=== PATIENT | male | born 1935 | race African-American/Black ===

== ENCOUNTER 2018-11-18 06:38 | Day surgery (SDC) | payer MEDICARE, MEDICAID ==
--- NOTE | 2018-11-15 10:57 | Opthalmology H&P ---
Ophthalmology H&P H&P Chief Complaint: decreased vision in left eye HPI Vision Affects Ability to: read, manage personal affairs HPI Narrative blurry vision Exam Visual Acuity: OD 20/80 OS 20/100 Tension: OD 17 OS 14 Eye Exam: normal OU: external exam, palpebral fissure-width, marginal reflex distance, levator function, corneas, anterior chambers, lens, fundus exam Assessment/Plan Treatment Plan: cataract extraction w/ lens implant Goals of Treatment: improvement of vision, enhance quality of life Attestation Attestation The risks and benefits of the surgery as well as alternative procedures were explained to the patient in detail. Manas Latif MD November 15, 2018 10:57
--- NOTE | 2018-11-15 10:59 | Pre-Procedure Note/Attestation ---
Pre-Procedure Note/Attestation Complete Prior to Procedure Planned Procedure: left Procedure Narrative: Cataract extraction with intraocular lens implant left eye Indications for Procedure Pre-Operative Diagnosis: nuclear sclerotic cataracts left eye Attestation I attest that I discussed the nature of the procedure; its benefits; risks and complications; and alternatives (and the risks and benefits of such alternatives ), prior to the procedure, with the patient (or the patient's legal sales representative facility services). I attest that, if there was a reasonable possibility of needing a blood transfusion, the patient (or the patient's legal sales representative facility services) was given the [facility] standardized written summary, pursuant to the Keyur Kayla Blood Safety Act ([place] Health and Safety Code # 1645, as amended). I attest that I re-evaluated the patient just prior to the surgery and that there has been no change in the patient's H&P, except as documented below: Manas Latif MD November 15, 2018 10:59
[~2018-11-18] VITALS: Ht 172.7 cm; Wt 117.9 kg
[2018-11-18] VITALS (9 sets, daily range): BP systolic 122–166; BP diastolic 63–73
[2018-11-18] MEDS ORDERED: Akten 3.5% 1ml Btl LEFT EYE ONE (07:00)
[2018-11-18] MEDS ORDERED: Proparacaine 0.5% Opth Soln 15ml LEFT EYE ONE (07:00)
[2018-11-18] MEDS ORDERED: Maxitrol Opth Oint 3.5gm ONE (07:00)
[2018-11-18] MEDS ORDERED: Tetracaine 0.5% Opth 4ml Soln LEFT EYE ONE (07:00)
[2018-11-18] MEDS ORDERED: Pilocarpine 1% Opth 15ml Soln ONE (07:00)
[2018-11-18] MEDS ORDERED: Pred Forte 1% Opth Susp 1ml ONE (07:00)
[2018-11-18] MEDS ORDERED: Diclofenac Sod 0.1% Op Soln LEFT EYE SCH (07:00)
[2018-11-18] MEDS ORDERED: Dexamethasone 4mg/ml vial ONE (07:00)
[2018-11-18] MEDS: Cyclopentolate 1% Opth Sol 2ml LEFT EYE SCH ×3 (08:15→08:35)
[2018-11-18] MEDS: Phenylephrine 10% Opth Soln 5ml LEFT EYE SCH ×3 (08:16→08:35)
[2018-11-18] MEDS: Tropicamide 1% Opth 15ml Soln LEFT EYE SCH ×3 (08:16→08:35)
[2018-11-18] MEDS: Tobramycin Op Soln 0.3% 5ml LEFT EYE SCH ×3 (08:16→08:35)
[2018-11-18] MEDS ORDERED: VITAMIN B125000 MCG PO (08:49)
[2018-11-18] MEDS ORDERED: AMLODIPINE BESYL5 MG ORAL (08:49)
[2018-11-18] MEDS ORDERED: ACTOS15 MG ORAL (08:49)
[2018-11-18] MEDS ORDERED: METFORMIN HCL1000 M1 ORAL (08:49)
[2018-11-18] MEDS ORDERED: FUROSEMIDE40 MG ORAL (08:49)
[2018-11-18] MEDS ORDERED: CLOPIDOGREL75 MG ORAL (08:49)
[2018-11-18] MEDS ORDERED: EPINEPHrine 1mg/1ml Amp ONE (09:27)
[2018-11-18] MEDS ORDERED: Carbachol 0.01% Op Soln 1.5ml vial ONE (09:27)
[2018-11-18] MEDS ORDERED: BSS 15ml BTL ONE (09:28)
[2018-11-18] MEDS ORDERED: Povidone-Iodine 5% opth solution ONE (09:28)
[2018-11-18] MEDS ORDERED: BSS 500ml btl ONE (09:28)
[2018-11-18] MEDS ORDERED: Sodium Hyaluronate 14 mg/ml 0.85ml ONE (09:28)
[2018-11-18] MEDS ORDERED: LR 1000ml 1,000 ML IVLG SCH (09:34)
--- NOTE | 2018-11-18 09:35 | Anethesia Preoperative Eval ---
Anesthesia Pre-op PMH/ROS General Date of Evaluation: November 18, 2018 Time of Evaluation: 09:47 Anesthesiologist: Parth ASA Score: ASA 3 Mallampati Score Class I : Soft palate, uvula, fauces, pillars visible Class II: Soft palate, uvula, fauces visible Class III: Soft palate, base of uvula visible Class IV: Only hard plate visible Mallampati Classification: Class III Surgeon: Bhavya Anesthesia History: none Family History: no anesthesia problems Allergies: Coded Allergies: No Known Allergies (Unverified , 11/15/18) Medications: see eMAR Patient NPO?: Yes Past Medical History Cardiovascular: Reports: HTN, arrhythmia - Pacemaker Endocrine: Reports: DM HEENT: Reports: cataract (L), cataract (R) Other: obesity - BMI 42 Anesthesia Pre-op Phys. Exam Physician Exam Last Vital Signs Date Time Temp Pulse Resp B/P (MAP) Pulse Ox O2 Delivery O2 Flow Rate FiO2 11/18/18 08:26 98.2 89 20 142/67 97 Room Air Constitutional: NAD Neurologic: CN 2-12 intact Cardiovascular: RRR Respiratory: CTA Gastrointestinal: S/NT/ND Airway Exam Mallampati Score: Class III MO: limited ROM: limited Teeth: missing, intact Anesthesia Pre-op A/P Risk Assessment & Plan Assessment: ASA 3 Plan: GA Status Change Before Surgery: No Enmanuel Alba MD November 18, 2018 09:35
[2018-11-18] MEDS ORDERED: Ketorolac 30mg Inj IV PRN ×2 (09:45)
[2018-11-18] MEDS ORDERED: Atropine Sulfate 0.4mg/ml inj IVP PRN (09:45)
[2018-11-18] MEDS ORDERED: DiphenhydrAMINE 50mg/ml Inj IVP PRN (09:45)
[2018-11-18] MEDS ORDERED: fentaNYL 100 mcg/2 mL IV PRN (09:45)
[2018-11-18] MEDS ORDERED: Metoclopramide 10mg/2ml Inj IVP PRN (09:45)
[2018-11-18] MEDS ORDERED: Labetalol 5mg/ml 20ml vial IV PRN (09:45)
[2018-11-18] MEDS ORDERED: Hydromorphone 0.5mg/0.5ml inj IVP PRN (09:45)
[2018-11-18] MEDS ORDERED: HYDROcodone/Acetamin 7.5/325 tab ORAL PRN (09:45)
[2018-11-18] MEDS ORDERED: Meperidine 50mg/ml Inj(FOR RIGORS ONLY) IVP PRN (09:45)
[2018-11-18] MEDS ORDERED: Midazolam 2mg/2ml Inj IVP PRN (09:45)
[2018-11-18] MEDS ORDERED: LORazepam Inj 2mg/ml 1ml IV PRN (09:45)
[2018-11-18] MEDS ORDERED: oxyCODONE HCL/Acetaminophen 5/325mg ORAL PRN (09:45)
[2018-11-18] MEDS ORDERED: HYDROcodone/Acetamin 5/325 tab ORAL PRN (09:45)
[2018-11-18] MEDS ORDERED: acetaZOLAMIDE 500mg Inj ONE (09:46)
[2018-11-18] MEDS ORDERED: LR 1000ml ONE (09:47)
[2018-11-18] MEDS ORDERED: Lidocaine 1% MPF 10mg/ml 5ml ONE (09:47)
[2018-11-18] MEDS ORDERED: Sterile Water Irrig 1000ml IRRIG ONE (09:47)
[2018-11-18] MEDS ORDERED: Propofol 200mg/20ml IV ONE (09:47)
[2018-11-18] MEDS ORDERED: NS Irrig 1000ml ONE (09:47)
[2018-11-18] MEDS ORDERED: Midazolam 2mg/2ml Inj ONE (09:50)
--- NOTE | 2018-11-18 10:08 | Immediate Post-Op Evaluation ---
Immediate Post-Op Evalulation Immediate Post-Op Evalulation Procedure: Cat Ext IOL OS Date of Evaluation: November 18, 2018 Time of Evaluation: 10:44 IV Fluids: 300 LR Blood Products: 0 Estimated Blood Loss: 1 Urinary Output: 0 Blood Pressure Systolic: 151 Blood Pressure Diastolic: 69 Pulse Rate: 85 Respiratory Rate: 16 O2 Sat by Pulse Oximetry: 99 Temperature (Fahrenheit): 98.2 Pain Score (1-10): 1 Nausea: No Vomiting: No Complications 0 Patient Status: awake, reacts, patent, none Hydration Status: adequate Enmanuel Alba MD November 18, 2018 10:08
--- NOTE | 2018-11-18 10:09 | 48 Hour Post Anesthesia Eval ---
Post Anesthesia Evaluation Procedure: Cat Ext IOL OS Date of Evaluation: November 18, 2018 Time of Evaluation: 12:53 Blood Pressure Systolic: 164 0: 69 Pulse Rate: 91 Respiratory Rate: 18 Temperature (Fahrenheit): 97.8 O2 Sat by Pulse Oximetry: 99 Airway: patent Nausea: No Vomiting: No Pain Intensity: 0 Hydration Status: adequate Cardiopulmonary Status: Stable Mental Status/LOC: patient returned to baseline Follow-up Care/Observations: 0 Post-Anesthesia Complications: 0 Follow-up care needed: ready to discharge Enmanuel Alba MD November 18, 2018 10:09
--- NOTE | 2018-11-19 14:18 | Brief Operative Note ---
Immediate Post Operative Note Operative Note Chief Complaint: blurry vision Pre-op Diagnosis: nuclear sclerotic cataracts left eye Procedure: Cataract extraction with IOL implant left eye Post-op Diagnosis: Pseudo OS Surgeon: Manas Latif MD Anesthesiologist: Enmanuel Alba MD Anesthesia: MAC Specimen: none Complications: none Condition: stable Fluids: LR Estimated Blood Loss: none Drains: none Implant(s) used?: Yes - IOL Manas Latif MD November 19, 2018 14:18
--- NOTE | 2018-11-19 14:22 | Operative Note - PDOC ---
Operative Note Operative Note Date of Operation/Procedure: November 18, 2018 Chief Complaint: blurry vision Pre-op Diagnosis: nuclear sclerotic cataracts left eye Procedure: Cataract extraction with IOL implant left eye Post-op Diagnosis: Pseudo OS Surgeon: Manas Latif MD Anesthesiologist: Enmanuel Alba MD Anesthesia: MAC Specimen: none Complications: none Condition: stable Fluids: LR Estimated Blood Loss: none Drains: none Implant(s) used?: Yes - IOL Indications for Procedure Nuclear sclerotic cataract left eye Description of Procedure This patient has been complaining visually significant cataract in the left eye with the best corrected visual acuity of 20/100 under moderate glare conditions worse. The patient complains of difficulties with glare in performing activities of daily living and wants to manage personal affairs with comfort and accuracy and see well enough to move with safety at home and outdoors. The risks, benefits and alternatives of the procedure were discussed with the patient in the office prior to scheduling surgery. All questions from the patient were answered after the surgical procedure was explained in detail. The risks of the procedure as explained to the patient include, but are not limited to, pain, infection, bleeding, loss of vision, retinal detachment, need for further surgery, loss of lens nucleus, double vision, etc. Alternative procedures were discussed which include, to do nothing or seek a second opinion. Informed consent for this procedure was obtained from the patient. The patient was referred to a primary care physician for a cardiopulmonary clearance prior to surgery, after proper evaluation was done patient was properly scheduled for outpatient surgery. The patient was brought to the operating room where the anesthesiologist established I.V. lines and cardiac monitoring leads. Mild intravenous sedation was administered. The patient was then prepared with a 5% solution of povidone -iodine to the conjunctival fornix and lashes, and a 5% solution of povidone- iodine to the lids and periorbital skin. The patient was then draped in the usual sterile fashion. A lid speculum was then placed in the operative eye. A keratome blade was then used to create a biplanar incision into the anterior chamber. Viscoelastics was then instilled into the anterior chamber. A curvilinear capsulorrhexis was then fashioned with an utrata forceps. A BSS was used with G-27 cannula was used to hydrodissect and hydrodelineate the lens nucleus. Paracentesis incision was made at 9 o'clock with sharp blade. The phacoemulsification unit, after being properly adjusted and tested, was then used to emulsify the lens nucleus and residual cortical material was aspirated with the irrigation and aspiration unit. Vioscoelastic n was then instilled into the anterior chamber. The corneal wound was then enlarged to the size of the optic with the rosanna keratome blade. The intraocular lens was then inspected for right power and size and thought to be satisfactory. Then the lens was gently placed in the capsular bag. Positioning within the capsular bag was confirmed by direct visualization. Optic centration was accomplished with a Sinskey hook. Viscoelastics was removed from the anterior chamber using the irrigation and aspiration unit. The corneal wound was then tested for leaks and none were found. The lid speculum were then removed. Sponge and needle counts were correct. An eye patch and shield were placed over the operative eye. The patient was taken to the recovery room in stable condition. There were no complications. The patient tolerated the procedure well. The patient was then transferred to the ambulatory surgery unit in stable and satisfactory condition , was given detailed written instructions and asked to follow up in the office the next day. Manas Latif MD November 19, 2018 14:22
== END 2018-11-18 12:00 | disposition home or self-care (01) ==
LOC: SUR 06:38
DX: H25.12 Age-related nuclear cataract, left eye (principal); Z95.0 Presence of cardiac pacemaker; I10 Essential (primary) hypertension; E11.9 Type 2 diabetes mellitus without complications; E66.9 Obesity, unspecified; Z68.39 Body mass index [BMI] 39.0-39.9, adult
CPT/HCPCS: 66984; 82962; J0171; J1100; J1120; J2250; J2704; J3370; V2632; 94003; 94150